=== PATIENT | female | born 1975 | race African-American/Black ===

== ENCOUNTER 2021-01-22 05:53 | Inpatient (IN) | payer MEDICARE, MEDICAID ==
[~2021-01-22] VITALS: Ht 152.4 cm; Wt 68.0 kg
[~2021-01-22 05:53] MED LIST: ASCO500C18 PO; LACT1CAP73 PO
[2021-01-22 06:09] LABS: CLARITY URINE CLEAR (CLEAR); COLOR URINE YELLOW (YELLOW); KETONES URINE NEGATIVE (NEGATIVE); LEUKOCYTE ESTERASE URINE NEGATIVE (NEGATIVE); NITRITE URINE NEGATIVE (NEGATIVE); OCCULT BLOOD URINE TRACE (NEGATIVE); PH URINE 5.5 (4.5-8.0); PROTEIN URINE NEGATIVE (NEGATIVE); SPECIFIC GRAVITY URINE 1.019 (1.005-1.030); UROBILINOGEN URINE 0.2 E.U./dL (0.2-1.0)
[2021-01-22 06:17] LABS: UCG SCREEN NEGATIVE
[2021-01-22 06:27] LABS: BASOPHILS % 0.4 % (0.0-2.0); EOSINOPHILS % 2.8 % (0.0-5.0); HEMOGLOBIN. 13.1 g/dL (12.0-16.0); LYMPHOCYTES % 44.8 % (20.0-50.0); MEAN CORPUSCULAR HEMOGLOBIN 29.2 pg (28.0-32.0); MEAN CORPUSCULAR VOLUME 87.2 fL (81.0-99.0); MEAN PLATELET VOLUME 9.4 fl (7.4-10.4); MONOCYTES % 7.1 % (2.0-8.0); NEUTROPHILS % 44.9 % (40.0-76.0); PLATELET 222 x1000/uL (130-400); RED BLOOD CELL COUNT 4.47 mill/uL (4.2-5.4); RED CELL DISTRIBUTION WIDTH 14.1 % (11.6-14.6)
[2021-01-22 06:29] LABS: CHLORIDE 110 mEq/L (98-107)
[2021-01-22 06:35] LABS: PARTIAL THROMBOPLASTIN TIME 26.6 sec (23.4-31.0); PROTHROMBIN TIME 11.1 sec (9.6-11.0)
[2021-01-22] MEDS: LACTATED RINGERS 1,000 ML IV SCH ×3 (06:55→22:39)
[2021-01-22] MEDS ORDERED: METHYLENE BLUE 50 MG/10 ML AMP IV ONE (07:00)
[2021-01-22] MEDS ORDERED: VASOPRESSIN 20 UNIT/ML 1ML ONE (07:00)
[2021-01-22] MEDS ORDERED: FENTANYL CITRATE/PF 50MCG/ML 2ML VIAL ONE ×2 (08:19→08:46)
[2021-01-22] MEDS ORDERED: GLYCOPYRROLATE 0.2 MG/ML 2ML VIAL ONE ×2 (08:19→10:36)
[2021-01-22] MEDS ORDERED: PROPOFOL 200MG/20ML VIAL IV ONE ×2 (08:19→08:47)
[2021-01-22] MEDS ORDERED: NEOSTIGMINE METHYLSULFATE 1MG/ML 10 ML VIAL ONE (08:19)
[2021-01-22] MEDS ORDERED: ROCURONIUM BROMIDE 10MG/ML VIAL 5ML IV ONE ×2 (08:19→08:47)
[2021-01-22] MEDS ORDERED: MIDAZOLAM HCL 2 MG/2 ML VIAL ONE ×2 (08:19→08:47)
[2021-01-22] MEDS ORDERED: ONDANSETRON HCL 4MG/2ML INJ ONE (08:20)
[2021-01-22] MEDS ORDERED: DEXAMETHASONE 4MG/ML 1ML VIAL ONE ×2 (08:20→09:56)
[2021-01-22] MEDS ORDERED: CLINDAMYCIN 900 MG PREMIX 50 ML IV ONE (09:10)
[2021-01-22] MEDS ORDERED: KETOROLAC 30MG/ML VIAL ONE (09:21)
[2021-01-22] MEDS ORDERED: SODIUM CHLORIDE 0.9% 1,000 ML IV SCH (09:45)
[2021-01-22] MEDS ORDERED: ONDANSETRON HCL 4MG/2ML INJ IV PRN (09:45)
[2021-01-22] MEDS ORDERED: FENTANYL CITRATE/PF 50MCG/ML 2ML VIAL IV PRN (09:45)
[2021-01-22] MEDS ORDERED: MEPERIDINE HCL/PF 25MG/ML CPJ IV PRN (09:45)
[2021-01-22] MEDS ORDERED: METOCLOPRAMIDE HCL 10MG/2ML VIAL ONE (09:56)
[2021-01-22] MEDS ORDERED: HYDROMORPHONE HCL/PF 2MG/ML (OR) ONE (10:12)
[2021-01-22] MEDS ORDERED: INDOCYANINE GREEN 25 MG VIAL IV ONE (10:25)
[2021-01-22] MEDS ORDERED: IBUP-1653 MT (10:43)
[2021-01-22] MEDS: HYDROMORPHONE HCL/PF 2MG/ML CPJ IV PRN ×2 (12:29→12:40)
[2021-01-22 15:57] VITALS: BP 122/66
[2021-01-22 16:00] VITALS: BP 122/66
[2021-01-22] MEDS ORDERED: IBUPROFEN 600MG TABLET PO PRN (17:15)
[2021-01-22] MEDS ORDERED: ACETAMINOPHEN 500MG TABLET PO SCH (18:00)
[2021-01-22 20:00] VITALS: BP 135/72
[2021-01-22] MEDS: ZOLPIDEM TARTRATE 5MG TABLET PO PRN (20:49)
[2021-01-22] MEDS: HYDROCODONE/ACETAMINOPHEN 10/325MG TABLET PO PRN (22:37)
[2021-01-23] VITALS: BP 108/51
[2021-01-23 04:00] VITALS: BP 119/76
[2021-01-23] MEDS: HYDROCODONE/ACETAMINOPHEN 10/325MG TABLET PO PRN ×5 (04:19→23:23)
[2021-01-23 06:27] LABS: BASOPHILS % 0.2 % (0.0-2.0); HEMATOCRIT. 32.4 % (36.0-48.0); HEMOGLOBIN. 10.9 g/dL (12.0-16.0); LYMPHOCYTES % 18.9 % (20.0-50.0); MEAN CORPUSCULAR HEMOGLOBIN 29.6 pg (28.0-32.0); MEAN CORPUSCULAR VOLUME 88.3 fL (81.0-99.0); MEAN PLATELET VOLUME 10.3 fl (7.4-10.4); MONOCYTES % 7.2 % (2.0-8.0); NEUTROPHILS % 73.7 % (40.0-76.0); PLATELET 184 x1000/uL (130-400); RED BLOOD CELL COUNT 3.67 mill/uL (4.2-5.4); RED CELL DISTRIBUTION WIDTH 14.4 % (11.6-14.6)
[2021-01-23] MEDS: LACTATED RINGERS 1,000 ML IV SCH (07:19)
[2021-01-23 08:00] VITALS: BP 100/50
[2021-01-23] MEDS: DOCUSATE SODIUM 100MG CAPSULE PO SCH ×2 (09:19→18:24)
[2021-01-23 12:00] VITALS: BP 125/68
[2021-01-23 16:00] VITALS: BP 102/53
[2021-01-23] MEDS ORDERED: NALOXONE HCL 0.4MG/ML VIAL IV PRN (20:15)
[2021-01-23] MEDS ORDERED: SIMETHICONE 80MG TABLET CHEW PO PRN (22:00)
[2021-01-23] MEDS: ZOLPIDEM TARTRATE 5MG TABLET PO PRN (22:45)
[2021-01-24] MEDS: HYDROCODONE/ACETAMINOPHEN 10/325MG TABLET PO PRN ×2 (06:51→13:46)
[2021-01-24 08:00] VITALS: BP 108/57
[2021-01-24] MEDS: DOCUSATE SODIUM 100MG CAPSULE PO SCH (09:23)
[2021-01-24 12:00] VITALS: BP 115/69
[2021-01-24 16:00] VITALS: BP 137/76
[2021-01-24 16:19] VITALS: BP 115/69
== END 2021-01-24 17:10 | disposition home or self-care (01) | DRG 743 ==
LOC: OR 05:53 → 6EST 16:03
PROVIDERS: ADMIT Obstetrics & Gynecology Obstetrics; ATTEND Obstetrics & Gynecology Obstetrics
PROC: 0UT90ZZ Resection of Uterus, Open Approach (ICD-10-PCS; principal; 2021-01-22)
PROC: 0UT70ZZ Resection of Bilateral Fallopian Tubes, Open Approach (ICD-10-PCS; 2021-01-22)
PROC: 0T7 Urinary System, Dilation (ICD-10-PCS; 2021-01-22)
PROC: 5A09357 Assistance with Respiratory Ventilation, Less than 24 Consecutive Hours, Continuous Positive Airway Pressure (ICD-10-PCS; 2021-01-23)
DX: D25.9 Leiomyoma of uterus, unspecified (principal); N73.6 Female pelvic peritoneal adhesions (postinfective); G89.29 Other chronic pain; D28.2 Benign neoplasm of uterine tubes and ligaments; Z88.0 Allergy status to penicillin
CPT/HCPCS: 36415; 80048; 81003; 81025; 85025; 86850; 86900; 87426; 88307; J1100; J1170; J1885; J2250; J2405; J2704; J2710; J2765; J3010; J3490; J7120; Q9957; Q9968